=== PATIENT | female | born 1970 | race Caucasian/White ===

== ENCOUNTER 2018-08-28 13:12 | Emergency (ER) | payer OTHER | END 2018-08-28 14:10 | disposition home or self-care (01) | LOC: E/R 13:12 | DX: S62.502A Fracture of unspecified phalanx of left thumb, initial encounter for closed fracture (principal); W22.8XXA Striking against or struck by other objects, initial encounter; Y92.9 Unspecified place or not applicable | CPT/HCPCS: 73140; 99283-25 ==

== ENCOUNTER 2018-11-03 15:08 | Emergency (ER) | payer OTHER ==
[2018-11-03] MEDS: IBUPROFEN 800 MG TAB PO (16:24)
[2018-11-03] MEDS: METHOCARBAMOL 500 MG TAB PO (16:42)
== END 2018-11-03 17:14 | disposition left against medical advice (07) ==
LOC: FTE 15:08
DX: S00.03XA Contusion of scalp, initial encounter (principal); I10 Essential (primary) hypertension; E11.9 Type 2 diabetes mellitus without complications; M62.838 Other muscle spasm; W22.8XXA Striking against or struck by other objects, initial encounter; Y92.009 Unspecified place in unspecified non-institutional (private) residence as the place of occurrence of the external cause
CPT/HCPCS: 99283; Z7502

== ENCOUNTER 2018-11-29 19:00 | Emergency (ER) | payer OTHER | END 2018-11-29 20:40 | disposition home or self-care (01) | LOC: FTE 19:00 | DX: H00.012 Hordeolum externum right lower eyelid (principal); F17.210 Nicotine dependence, cigarettes, uncomplicated | CPT/HCPCS: 99283 ==